=== PATIENT | female | born 1990 | race Caucasian/White ===

== ENCOUNTER 2019-11-10 05:20 | Observation (INO) ==
[2019-11-10] MEDS ORDERED: 0.9 % Sodium Chloride 1,000 ML IVC ONE (05:24)
[2019-11-10 05:58] LABS: Basophils % 0.2 %; Eosinophils # 0.1 K/mcL (0.0-0.6); Eosinophils % 0.5 %; Hematocrit 35.2 % (35.3-44.9); Hemoglobin 12.4 g/dL (11.5-15.4); Immature Granulocytes % 0.5 % (0-4); Lymphocytes # 1.1 K/mcL (0.6-4.6); Lymphocytes % 9.1 %; Mean Corpuscular HGB Conc 35.2 g/dL (31.6-35.5); Mean Corpuscular Hemoglobin 30.1 pg (28.0-33.3); Mean Corpuscular Volume 85.4 fL (83.0-100.0); Mean Platelet Volume 8.2 fL (9.4-12.4); Monocytes # 0.5 K/mcL (0.0-1.3); Monocytes % 4.4 %; Platelet Count 259 K/mcL (140-400); Red Blood Count 4.12 M/mcL (3.82-4.97); Red Cell Distribution Width 12.5 % (11.5-14.5); Segmented Neutrophils % 85.3 %; White Blood Count 11.7 K/mcL (4.3-11.1)
[2019-11-10] MEDS ORDERED: Lidocaine -MPF 2% 2 ML VIAL ONE (06:08)
[2019-11-10] MEDS ORDERED: Lidocaine -MPF 4% 5 ML AMPUL ONE (06:08)
[2019-11-10] MEDS ORDERED: *HR* Propofol 200 MG/20 ML VIAL IVP ONE (06:08)
[2019-11-10] MEDS ORDERED: *HR* Succinylcholine 200 MG/10 ML VIAL IVP ONE (06:08)
[2019-11-10] MEDS ORDERED: *HR* FentaNYL (PF) 100 MCG/2 ML VIAL ONE (06:08)
[2019-11-10 06:09] LABS: INR 1.2
[2019-11-10 06:12] LABS: Activated Partial Thrombo Time 27.7 Seconds (26.0-36.0)
[2019-11-10 06:23] LABS: Alanine Aminotransferase 15 Units/L (7-52); Albumin/Globulin Ratio 1.5 (1.1-2.2); Alkaline Phosphatase 64 Units/L (34-104); Aspartate Amino Transferase 14 Units/L (13-39); BUN/Creatinine Ratio 16 (6-26); Bilirubin,Total 0.3 mg/dL (0.3-1.0); Blood Urea Nitrogen 9 mg/dL (6-20); Calcium 8.6 mg/dL (8.6-10.3); Carbon Dioxide 23 mEq/L (23-29); Chloride 104 mEq/L (98-107); Globulin 2.6 g/dL (2.4-3.5); Glucose 141 mg/dL (70-105); Osmolality,Calculated 289 (280-300); Potassium 3.2 mEq/L (3.5-5.1); Sodium 139 mEq/L (136-145); Total Protein 6.6 g/dL (6.4-8.9); eGFR For African Americans > 60 (> 60); eGFR For Non-African Americans > 60 (> 60)
[2019-11-10] MEDS ORDERED: *HR* Meperidine 25 MG/ML SYRINGE IVP PRN (06:23)
[2019-11-10] MEDS ORDERED: Ondansetron 4 MG/2 ML VIAL IVP ONE (06:23)
[2019-11-10] MEDS ORDERED: *HR* HYDROmorphone (PF) 1 MG/ML SYRINGE IVP PRN (06:23)
[2019-11-10] MEDS ORDERED: *HR* Promethazine 25 MG/ML VIAL IVP PRN (06:23)
[2019-11-10] MEDS ORDERED: *HR* Midazolam HCl 2 MG/2 ML VIAL ONE (06:31)
[2019-11-10] MEDS ORDERED: *HR* PHENYLEPHRINE 1,000 MCG/10 ML SYRINGE IVP ONE (06:55)
[2019-11-10] MEDS ORDERED: Methylergonovine 0.2 MG/ML AMPUL IM ONE (07:01)
[2019-11-10] MEDS ORDERED: Acetaminophen IV 1,000 MG/100 ML INFUS..BTL ONE (07:36)
[2019-11-10] MEDS ORDERED: Scopolamine Patch 1.5 MG PATCH.TD72 ONE (07:36)
[2019-11-10] MEDS ORDERED: Famotidine 20 MG/2 ML VIAL IVP ONE (07:43)
[2019-11-10] MEDS ORDERED: Ringers Solution, Lactated 1,000 ML ONE (08:16)
[2019-11-10] MEDS ORDERED: Ringers Solution, Lactated 1,000 ML IVC SCH (11:06)
[2019-11-10] MEDS ORDERED: Ibuprofen 600 MG TABLET PO PRN (11:06)
[2019-11-10] MEDS ORDERED: Ondansetron 4 MG/2 ML VIAL IVP PRN (11:06)
[2019-11-10] MEDS ORDERED: Naloxone 0.4 MG/ML INJ IVP PRN (11:06)
[2019-11-10] MEDS ORDERED: *HR* HYDROcodone/Acet 5/325 mg TABLET PO PRN (11:06)
[2019-11-10 11:30] LABS: Basophils % 0.2 %; Eosinophils % 0.2 %; Hematocrit 24.9 % (35.3-44.9); Hemoglobin 8.6 g/dL (11.5-15.4); Immature Granulocytes % 0.4 % (0-4); Immature Platelets 0.7 % (1.1-6.1); Lymphocytes # 1.3 K/mcL (0.6-4.6); Lymphocytes % 22.5 %; Mean Corpuscular HGB Conc 34.5 g/dL (31.6-35.5); Mean Corpuscular Hemoglobin 29.7 pg (28.0-33.3); Mean Corpuscular Volume 85.9 fL (83.0-100.0); Mean Platelet Volume 8.1 fL (9.4-12.4); Monocytes # 0.3 K/mcL (0.0-1.3); Platelet Count 210 K/mcL (140-400); Red Cell Distribution Width 12.5 % (11.5-14.5); Segmented Neutrophils % 70.7 %; White Blood Count 5.6 K/mcL (4.3-11.1)
[2019-11-10 16:33] VITALS: BP 112/72
== END 2019-11-10 16:50 | disposition home or self-care (01) ==
LOC: 1NENUOBS 05:20 → EMEROOARM 05:20 → 1NENUOBS 06:30
PROVIDERS: ADMIT Obstetrics & Gynecology; ATTEND Obstetrics & Gynecology

== ENCOUNTER 2021-12-25 16:23 | Inpatient (IN) ==
[~2021-12-25 16:23] MED LIST: Azithromycin 500 MG in 0.9 % Sodium Chloride 250 ML IVPB PRN; Famotidine 20 MG/2 ML VIAL IVP PRN; Metoclopramide 10 MG/2 ML VIAL IVP PRN; Naloxone 0.4 MG/ML INJ IVP PRN; Ondansetron 4 MG/2 ML VIAL IVP PRN
[2021-12-25] MEDS ORDERED: Oxytocin 20 units/ LR 1000 mL 20 UNIT/1,000 ML BAG IVC ONE ×2 (16:28→22:19)
[2021-12-25] MEDS ORDERED: Famotidine 20 MG/2 ML VIAL IVP ONE (16:28)
[2021-12-25] MEDS ORDERED: Metoclopramide 10 MG/2 ML VIAL IVP ONE (16:28)
[2021-12-25] MEDS ORDERED: CeFAZolin 2,000 MG/120 ML BAG IVPB ONE ×2 (16:28→22:19)
[2021-12-25] MEDS ORDERED: Ringers Solution, Lactated 1,000 ML IVC SCH (16:30)
[2021-12-25] MEDS ORDERED: Ondansetron 4 MG/2 ML VIAL IVP PRN (17:10)
[2021-12-25] MEDS ORDERED: Promethazine 6.25 MG in Water for inj. (sterile) 20 ML IVPB PRN (17:10)
[2021-12-25] MEDS ORDERED: *HR* HYDROmorphone PF 0.5 MG/0.5 ML SYRINGE IVP PRN (17:10)
[2021-12-25 18:29] LABS: Basophils # 0.1 K/mcL (0.0-0.2); Basophils % 0.6 %; Eosinophils % 0.5 %; Hemoglobin 12.3 g/dL (11.5-15.4); Immature Granulocytes % 1.5 % (0-4); Lymphocytes # 1.1 K/mcL (0.6-4.6); Lymphocytes % 13.1 %; Mean Corpuscular HGB Conc 33.2 g/dL (31.6-35.5); Mean Corpuscular Hemoglobin 30.3 pg (28.0-33.3); Mean Corpuscular Volume 91.1 fL (83.0-100.0); Mean Platelet Volume 8.9 fL (9.4-12.4); Monocytes # 0.6 K/mcL (0.0-1.3); Monocytes % 6.9 %; Neutrophils # 6.6 K/mcL (1.6-8.9); Platelet Count 317 K/mcL (140-400); Red Blood Count 4.06 M/mcL (3.82-4.97); Red Cell Distribution Width 13.7 % (11.5-14.5); Segmented Neutrophils % 77.4 %; White Blood Count 8.5 K/mcL (4.3-11.1)
[2021-12-25 18:36] LABS: Amphetamine Screen,Urine Negative ng/mL (Cutoff=1000); Barbiturate Screen,Urine Negative ng/mL (Cutoff=200); Benzodiazepines Screen,Urine Negative ng/mL (Cutoff=200); Cannabinoid Screen,Urine Negative ng/mL (Cutoff = 50); Cocaine Screen,Urine Negative ng/mL (Cutoff= 300); Opiate Screen,Urine Negative ng/mL (Cutoff=300); Phencyclidine Screen,Urine Negative ng/mL (Cutoff=25)
[2021-12-25 19:32] LABS: Influenza A PCR Negative (Negative); Influenza B PCR Negative (Negative); Resp. Syncytial Virus PCR Negative (Negative)
[2021-12-25 19:37] LABS: SARS-CoV-2 by PCR (In House) Negative (Negative)
[2021-12-25] MEDS ORDERED: *HR* Morphine Sulfate/PF 10 MG/10 ML AMPUL ONE (21:13)
[2021-12-25] MEDS ORDERED: EPHEDrine 50 MG/ML VIAL ONE (21:14)
[2021-12-25] MEDS ORDERED: *HR* FentaNYL (PF) 100 MCG/2 ML VIAL ONE (21:14)
[2021-12-25] MEDS ORDERED: Ondansetron 4 MG/2 ML VIAL ONE (21:14)
[2021-12-25] MEDS ORDERED: Acetaminophen IV 1,000 MG/100 ML BAG IVPB ONE (21:14)
[2021-12-25] MEDS ORDERED: Ringers Solution, Lactated 1,000 ML ONE (21:14)
[2021-12-26] MEDS ORDERED: Simethicone 80 MG TAB.CHEW PO PRN (01:53)
[2021-12-26] MEDS ORDERED: Metoclopramide 10 MG/2 ML VIAL IVP PRN (01:53)
[2021-12-26] MEDS ORDERED: Ondansetron 4 MG/2 ML VIAL IVP PRN (01:53)
[2021-12-26] MEDS ORDERED: ceFAZolin 2,000 MG in Water for inj. (sterile) 10 ML IVP SCH ×2 (01:53→03:00)
[2021-12-26] MEDS: Ibuprofen 600 MG TABLET PO SCH ×4 (02:41→23:02)
[2021-12-26] MEDS: Oxytocin 20 units/ LR 1000 mL 20 UNIT/1,000 ML BAG IVC SCH ×2 (02:41→11:01)
[2021-12-26 05:13] LABS: Basophils % 0.2 %; Hematocrit 33.3 % (35.3-44.9); Hemoglobin 11.1 g/dL (11.5-15.4); Immature Granulocytes % 0.7 % (0-4); Lymphocytes # 0.8 K/mcL (0.6-4.6); Lymphocytes % 6.2 %; Mean Corpuscular HGB Conc 33.3 g/dL (31.6-35.5); Mean Corpuscular Hemoglobin 31.1 pg (28.0-33.3); Mean Corpuscular Volume 93.3 fL (83.0-100.0); Monocytes # 0.7 K/mcL (0.0-1.3); Neutrophils # 11.7 K/mcL (1.6-8.9); Platelet Count 281 K/mcL (140-400); Red Blood Count 3.57 M/mcL (3.82-4.97); Red Cell Distribution Width 13.6 % (11.5-14.5); Segmented Neutrophils % 87.9 %
[2021-12-26 05:15] LABS: White Blood Count 13.3 K/mcL (4.3-11.1)
[2021-12-26] MEDS: Acetaminophen 325 MG TABLET PO SCH ×3 (06:11→21:32)
[2021-12-26] MEDS: metroNIDAZOLE 500 MG TABLET PO SCH ×3 (08:31→21:32)
[2021-12-26] MEDS ORDERED: NON-FORMULARY MEDICATION 1 EACH EACH (Prenatal Vit/Fa [Prenatal Vit/Fa] 1 EACH Tablet) PO SCH (09:00)
[2021-12-26] MEDS ORDERED: Prenatal Vit/FA 1 EACH TABLET PO SCH (09:00)
[2021-12-26] MEDS ORDERED: Ondansetron 4 MG/2 ML VIAL IVP ONE (10:10)
[2021-12-26 21:13] VITALS: O2SAT 98
[2021-12-27] MEDS: *HR* OxyCODONE Immed Rel 5 MG TABLET PO PRN ×2 (01:31→08:30)
[2021-12-27] MEDS: Acetaminophen 325 MG TABLET PO PRN ×2 (03:38→11:50)
[2021-12-27] MEDS: Ibuprofen 600 MG TABLET PO SCH ×2 (05:18→11:49)
[2021-12-27 07:09] VITALS: BP 106/66; PULSE 85; TEMP 98.3
[2021-12-27] MEDS: metroNIDAZOLE 500 MG TABLET PO SCH (08:29)
== END 2021-12-27 13:36 | disposition home or self-care (01) | DRG 788 ==
LOC: 1NENULAB → 1NENUOBS 12-26 01:52
PROVIDERS: ADMIT Obstetrics & Gynecology; ATTEND Obstetrics & Gynecology